=== PATIENT | female | born 1970 | race African-American/Black ===

== ENCOUNTER → 2016-11-02 | Outpatient (CLI) | payer OTHER ==
[~2016-11-02] MED LIST: ADDERALL PO; ADDERALL20 M1 PO; AMBIEN10 MG PO; ANTIVERT PO; ASPIRIN81 M2 PO; ATIVAN PO; BENADRYL PO; CALCIUM + D 6001 TA1 PO; CALCIUM 5001 TAB PO; CERTAGEN PO; FLAGYL PO; FLEXERIL10 MG PO; IBUPROFEN PO; IBUPROFEN800 MG PO; MUCINEX1200 MG/BO PO; MULTI VITAMIN1 EACH PO; PREDNISONE PO; PROTONIX PO; ROBAXIN PO; VICODIN PO; VITAMIN C100 MG PO; VITAMIN D400 UNI2 PO
--- NOTE | ~2016-11-02 | EKG ---
PATIENT: NAOMI RODRIGUEZ UNIT #: [id number] Ventricular Rate: 69 BPM Atrial Rate: 69 BPM P-R Interval: 188 ms QRS Duration: 96 ms Q-T Interval: 402 ms QTC Calculation(Bezet): 430 ms P [place]: 44 degrees Calculated R [place]: 42 degrees Calculated T [place]: 52 degrees Diagnosis Line: Normal sinus rhythm Diagnosis Line: Normal ECG Diagnosis Line: Diagnosis Line: Confirmed by BARON SEE MD ([id number]) on 11/02/2016 Diagnosis Line: 8:42:53 PM INTERPRETING MD: ESA MEDINA
[2016-11-02 14:08] LABS: BASOPHIL# 0.1 X10e3 (0-0.3); EOSINOPHIL% 0.2 % (0.0-7.0); HEMATOCRIT 39.1 % (35.0-45.0); HEMOGLOBIN 12.4 gm/dL (12.0-16.0); LYMPHOCYTE# 2.5 X10e3 (1.0-3.5); LYMPHOCYTE% 37.1 % (17.0-45.0); MEAN CELL VOLUME 82.7 FL (83-96); MEAN CORPUSCULAR HEMOGLOBIN 26.2 PG (28-34); MEAN CORPUSCULAR HGB CONC 31.6 g/dL (30-36); MEAN PLATELET VOLUME 8.2 FL (6.5-11.5); MONOCYTE# 0.4 X10e3 (0-1.0); MONOCYTE% 5.9 % (3.0-12.0); NEUTROPHIL# 3.7 X10e3 (1.5-7.1); NEUTROPHIL% 55.8 % (40-75); PLATELET COUNT 313 X10e3 (140-420); RED BLOOD COUNT 4.73 X10e (3.90-5.30); RED CELL DISTRIBUTION WIDTH 15.9 % (11.0-15.5); WHITE BLOOD COUNT 6.6 X10e3 (4.0-10.5)
[2016-11-02 14:12] LABS: DIFF IND NO
[2016-11-02 14:53] LABS: BUN/CREATININE RATIO 18.57; CALCIUM SERUM 9.1 mg/dL (8.4-10.2); CREATININE SERUM 0.7 mg/dL (0.6-1.4); GLOM FILT RATE Estimated 121.3 mL/min (>60); POTASSIUM 4.3 mmol/L (3.5-5.1)
== END | disposition home or self-care (01) ==
LOC: CEKG 13:35
PROVIDERS: Urology
DX: N39.3 Stress incontinence (female) (male) (principal)
CPT/HCPCS: 36415; 80048; 85025; 93005